=== PATIENT | male | born 1990 | race Caucasian/White ===

== ENCOUNTER 2020-09-09 17:17 | Emergency (ER) | payer SELFPAY ==
[~2020-09-09] VITALS: Ht 180.3 cm; Wt 87.7 kg
--- NOTE | 2020-09-09 17:34 | NUR ---
EKG done in triage.
--- NOTE | 2020-09-09 17:45 | NUR ---
FIRST CONTACT WITH PT. PT SITTING UP IN [facility], NAD NOTED. PT REPORTS GENERAL FEELING OF UNWELL FOLLOWING SECOND COVID VACCINE. +INTERMITTENT FEVER AND DYSPNEA WITH EXERTION. DENIES LE SWELLING/PAIN, PRODUCTIVE COUGH, OR CHEST PAIN. BP/SPO2/ECG MONITORING IN PLACE. IRREGULAR SINUS TACH ON MONITOR, HR 100-130.
[2020-09-09] MEDS ORDERED: SODIUM CHLORIDE 0.9% 1,000ML IVBOLUS ONE ×3 (18:00→19:30)
[2020-09-09] MEDS ORDERED: IBUPROFEN 200 MG TABLET PO ONE (18:00)
[2020-09-09] MEDS ORDERED: ACETAMINOPHEN 500 MG TABLET PO ONE (18:00)
[2020-09-09] MEDS ORDERED: IBUPROFEN 800 MG TABLET ONE (18:10)
[2020-09-09] MEDS ORDERED: ACETAMINOPHEN 500 MG TABLET ONE (18:11)
[2020-09-09 18:20] LABS: BASOPHILS % (AUTO) 1 % (0-1); EOSINOPHILS % (AUTO) 0 % (1-7); LYMPHOCYTES % (AUTO) 21 % (22-44); MEAN CORPUSCULAR HEMOGLOBIN 31.2 pg (27.5-34.5); MEAN CORPUSCULAR HGB CONC 34.8 g/dL (33.2-36.2); MEAN PLATELET VOLUME 8.7 fL (7.4-10.4); MONOCYTES % (AUTO) 7 % (2-9); NEUTROPHILS % (AUTO) 71 % (42-75); PLATELET COUNT 270 x10^3/uL (130-400); RED BLOOD COUNT 4.98 x10^6/uL (4.38-5.82); RED CELL DISTRIBUTION WIDTH 13.4 % (9.4-14.8)
[2020-09-09 18:21] LABS: MD NO
--- NOTE | 2020-09-09 18:23 | NUR ---
PT MEDICATED PER EMAR
[2020-09-09 18:28] LABS: ALBUMIN 4.6 g/dL (3.4-5.0); ANION GAP 8 mmol/L (5-15); CHLORIDE 106 mmol/L (98-107); CREATININE 1.04 mg/dL (0.7-1.3)
[2020-09-09 18:35] LABS: TROPONIN I < 0.015 ng/mL (0.000-0.045)
[2020-09-09] MEDS ORDERED: CEFTRIAXONE 1,000 MG in DEXTROSE 5% 50 ML IVPB ONE (19:30)
--- NOTE | 2020-09-09 19:37 | NUR ---
PT MEDICATED PER EMAR. BC X2 DRAWN PRIOR TO ABX ADMIN.
--- NOTE | 2020-09-09 20:36 | NUR ---
NO S/S OF ABX RXN NOTED. THIRD LITER NS INITIATED. AWAITING REPEAT LACTIC ACID FOR DISPO
[2020-09-09 20:49] VITALS: BP 128/70
--- NOTE | 2020-09-09 20:50 | NUR ---
PT SITTING UP IN GIUSEPPE PASTOR NOTED. VSS. THIRD LITER CONTINUES TO INFUSE. AWAITING LACTIC ACID RESULT FOR DISPO
--- NOTE | 2020-09-09 21:18 | NUR ---
DC EDUCATION PROVIDED, PT DEMONSTRATES UNDERSTANDING. PT AMBULATED STEADILY TO DC WITH RN.
== END 2020-09-09 21:19 | disposition home or self-care (01) ==
LOC: ED 19:45
DX: B34.9 Viral infection, unspecified (principal); R65.10 Systemic inflammatory response syndrome (SIRS) of non-infectious origin without acute organ dysfunction; R00.0 Tachycardia, unspecified; R50.9 Fever, unspecified
CPT/HCPCS: 36415; 71045; 80048; 82040; 83605; 84484; 85025; 87040; 93005; 96361; 96365; 99285; J0696; J7030